=== PATIENT | female | born 1995 | race African-American/Black ===

== ENCOUNTER 2017-03-27 21:36 | Emergency (ER) | payer SELFPAY ==
[2017-03-27 22:08] LABS: URINE HCG POC HCG POSITIVE (Negative)
[2017-03-27] MEDS: LIDOCAINE WITH 8.4% SOD BICARB 3 ML DISP.SYRIN. IJ (23:00)
[2017-03-27] MEDS: LIDOCAINE/EPI/TETRACAINE TOPICAL GEL 3 ML. TP (23:21)
== END 2017-03-28 01:15 | disposition home or self-care (01) ==
LOC: ER 03-28 01:15
DX: O26.891 Other specified pregnancy related conditions, first trimester (principal); O46.91 Antepartum hemorrhage, unspecified, first trimester; S51.812A Laceration without foreign body of left forearm, initial encounter; O20.0 Threatened abortion; Z3A.10 10 weeks gestation of pregnancy; W13.4XXA Fall from, out of or through window, initial encounter; Y93.89 Activity, other specified; Y99.8 Other external cause status; Y92.89 Other specified places as the place of occurrence of the external cause
CPT/HCPCS: 12001; 36415; 76801; 81025; 84702; 86901; 99285

== ENCOUNTER 2017-03-30 08:48 | Emergency (ER) | payer SELFPAY ==
[2017-03-30] MEDS: IV NORMAL SALINE 1000ML BAG 1,000 ML IV ×2 (09:35→13:06)
[2017-03-30] MEDS: PROMETHAZINE 12.5 MG in IV DEXTROSE 5% 50 ML IV (09:56)
[2017-03-30 10:17] LABS: BASO % 0 % (0-3); EOS % 0 % (0-3); HEMATOCRIT 40.6 % (36.0-47.0); HEMOGLOBIN 13.3 g/dL (12.0-15.5); LYMPH # 0.4 x10^3/uL (1.0-4.8); LYMPH % 3 % (24-48); MEAN CORPUSCULAR HEMOGLOBIN 28 pg (25-35); MEAN CORPUSCULAR HGB CONC 33 g/dL (31-37); MEAN CORPUSCULAR VOLUME 86 fL (79-100); MONO % 2 % (0-9); NEUT % 95 % (31-73); PLATELET COUNT 191 x10^3/uL (140-400); RED BLOOD COUNT 4.72 x10^6/uL (3.50-5.40); RED CELL DISTRIBUTION WIDTH 15.3 % (11.5-14.5); WHITE BLOOD COUNT 12.4 x10^3/uL (4.0-11.0)
[2017-03-30 10:19] LABS: ADD MAN DIFF? YES; ANION GAP 12 (6-14); BLOOD UREA NITROGEN 7 mg/dL (7-20); BUN/CREATININE RATIO 14 (6-20); CALCIUM 8.5 mg/dL (8.5-10.1); CARBON DIOXIDE 23 mmol/L (21-32); CHLORIDE 104 mmol/L (98-107); CREATININE 0.5 mg/dL (0.6-1.0); GFR 190.3; GLUCOSE 112 mg/dL (70-99); POTASSIUM 3.9 mmol/L (3.5-5.1); SODIUM 139 mmol/L (136-145)
[2017-03-30 10:26] LABS: ALBUMIN 3.5 g/dL (3.4-5.0); ALBUMIN/GLOBULIN RATIO 0.9 (1.0-1.7); ALK PHOS 64 U/L (46-116); ALT (SGPT) 18 U/L (14-59); AST (SGOT) 15 U/L (15-37); TOTAL BILIRUBIN 0.7 mg/dL (0.2-1.0); TOTAL PROTEIN 7.3 g/dL (6.4-8.2)
[2017-03-30] MEDS: ONDANSETRON PF 4 MG/2 ML VIAL. IV (11:50)
[2017-03-30] MEDS: FAMOTIDINE 20 MG/2 ML VIAL IVP (11:50)
[2017-03-30 12:37] LABS: PLT ESTIMATE ADEQUATE (ADEQUATE)
== END 2017-03-30 14:07 | disposition home or self-care (01) ==
LOC: ER 08:48
DX: O21.9 Vomiting of pregnancy, unspecified (principal); O46.91 Antepartum hemorrhage, unspecified, first trimester; Z3A.01 Less than 8 weeks gestation of pregnancy
CPT/HCPCS: 36415; 80053; 84702; 85007; 85025; 86901; 96361; 96365; 96375; 99284-25; J2405; J2550; J7030; S0028